=== PATIENT | female | born 1990 | race African-American/Black ===

== ENCOUNTER 2024-01-04 21:36 | Emergency (ER) | payer OTHER, SELFPAY ==
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
[2024-01-04 21:39] VITALS: BP 120/69; PULSE 98; RESP 18; TEMP 36.7; O2SAT 100
[2024-01-04 22:16] VITALS: BP 96/83; PULSE 91; RESP 16; O2SAT 100
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
[2024-01-04] MEDS: ACETAMINOPHEN 500 MG TABLET 1000 MG PO (22:36)
[2024-01-04] MEDS: KETOROLAC 30 MG/ML VIAL (*BKC) IM (22:37)
[2024-01-04 23:13] VITALS: BP 109/57; PULSE 79; RESP 16; O2SAT 100
== END 2024-01-04 23:58 | disposition home or self-care (01) ==
PROVIDERS: Emergency Provider Physician Assistant
DX: S13.4XXA Sprain of ligaments of cervical spine, initial encounter (principal); V64.5XXA Driver of heavy transport vehicle injured in collision with heavy transport vehicle or bus in traffic accident, initial encounter
CPT/HCPCS: 70450; 72125; 72128; 72131; 73030; 96372; 99284; A9270; J1885